=== PATIENT | female | born 1985 | race Asian ===

== ENCOUNTER 2022-11-02 12:47 | Emergency (ER) | payer BC ==
[~2022-11-02] VITALS: Ht 170.2 cm; Wt 90.0 kg
[2022-11-02 15:05] VITALS: BP 137/81
[2022-11-02] MEDS ORDERED: IBUP-1554 PO (16:38)
== END 2022-11-02 16:16 | disposition still patient (30) ==
LOC: EMS 12:58
DX: S13.4XXA Sprain of ligaments of cervical spine, initial encounter (principal); S50.01XA Contusion of right elbow, initial encounter; S00.03XA Contusion of scalp, initial encounter; V49.9XXA Car occupant (driver) (passenger) injured in unspecified traffic accident, initial encounter; Y93.89 Activity, other specified; Y92.89 Other specified places as the place of occurrence of the external cause; Y99.8 Other external cause status
CPT/HCPCS: 72040; 72070; 99284; Z7502